=== PATIENT | male | born 1975 | race Two or more races ===

== ENCOUNTER 2021-04-23 13:55 | Inpatient (IN) | payer SELFPAY ==
[~2021-04-23] VITALS: Ht 167.6 cm; Wt 93.1 kg
[2021-04-23] MEDS ORDERED: ONDANSETRON HCL 4 MG/2 ML VIAL IV ONE ×2 (14:45→17:00)
[2021-04-23] MEDS ORDERED: SODIUM CHLORIDE 0.9% 500 ML IV ONE (14:45)
[2021-04-23] MEDS ORDERED: HYDROmorphone HCL 2 MG/ML VL IV ONE ×3 (14:45→19:00)
[2021-04-23 20:54] LABS: Basophils # (auto) 0.3 10 ^3/uL (0-0.2); Basophils % (auto) 2.2 % (0.0-2.0); Eosinophils # (auto) 0.1 10 ^3/uL (0-0.8); Eosinophils % (auto) 0.5 % (0.0-7.0); Hematocrit 45.1 % (41.0-53.0); Hemoglobin 15.3 g/dL (13.5-17.5); Lymphocytes # (auto) 2.6 10 ^3/uL (0.4-5.4); Lymphocytes % (auto) 20.5 % (10.0-50.0); Mean Corpuscular Hemoglobin 29.2 pg (28.0-32.0); Mean Corpuscular Hgb Conc. 33.9 g/dL (32.0-36.0); Mean Corpuscular Volume 86.3 fL (80.0-100.0); Monocytes # (auto) 0.9 10 ^3/uL (0-1.3); Monocytes % (auto) 7.1 % (0.0-12.0); Neutrophils # (auto) 8.8 10 ^3/uL (1.6-8.6); Neutrophils % (auto) 69.7 % (37.0-80.0); Red Blood Cells 5.23 10^6/uL (4.5-5.90); Red Cell Distribution Width 12.9 % (11.8-14.3); White Blood Cell 12.6 10^3/uL (4.4-10.8)
[2021-04-23] MEDS ORDERED: ONDANSETRON HCL 4 MG/2 ML VIAL IV PRN (21:00)
[2021-04-23 21:10] LABS: Albumin 3.7 g/dL (3.4-5.0); Calcium 8.7 mg/dL (8.5-10.1); Potassium 4.1 mmol/L (3.5-5.1)
[2021-04-23 21:12] LABS: BUN/Creatinine Ratio 13.9
[2021-04-23 21:14] LABS: Bilirubin, Total 0.5 mg/dL (0.2-1.0); Total Protein 7.5 g/dL (6.4-8.2)
[2021-04-23] MEDS: SODIUM CHLORIDE 0.9% 1,000 ML IV SCH (21:35)
[2021-04-23 22:53] LABS: INR 1.05 (0.9-1.15); Partial Thromboplastin Time 25.6 sec (23.6-33.0)
[2021-04-23 23:00] VITALS: BP 110/71
[2021-04-23 23:28] VITALS: BP 110/71
[2021-04-24] MEDS: MORPHINE SULFATE 4 MG/ML SYR/VIAL IV PRN ×2 (00:59→04:26)
[2021-04-24 05:10] LABS: Basophils # (auto) 0 10 ^3/uL (0-0.2); Basophils % (auto) 0.5 % (0.0-2.0); Eosinophils # (auto) 0.1 10 ^3/uL (0-0.8); Eosinophils % (auto) 0.9 % (0.0-7.0); Hematocrit 42.6 % (41.0-53.0); Hemoglobin 14.3 g/dL (13.5-17.5); Lymphocytes # (auto) 2.7 10 ^3/uL (0.4-5.4); Lymphocytes % (auto) 29.5 % (10.0-50.0); Mean Corpuscular Hemoglobin 29.2 pg (28.0-32.0); Mean Corpuscular Hgb Conc. 33.7 g/dL (32.0-36.0); Mean Corpuscular Volume 86.6 fL (80.0-100.0); Monocytes # (auto) 0.8 10 ^3/uL (0-1.3); Monocytes % (auto) 9.2 % (0.0-12.0); Neutrophils # (auto) 5.5 10 ^3/uL (1.6-8.6); Neutrophils % (auto) 59.9 % (37.0-80.0); Nucleated Red Blood Cells % 0.1 %; Red Blood Cells 4.92 10^6/uL (4.5-5.90); White Blood Cell 9.1 10^3/uL (4.4-10.8)
[2021-04-24 05:30] VITALS: BP 109/65
[2021-04-24 05:35] LABS: BUN/Creatinine Ratio 14.7; Calcium 8.8 mg/dL (8.5-10.1); Potassium 4.1 mmol/L (3.5-5.1)
[2021-04-24] MEDS: SODIUM CHLORIDE 0.9% 1,000 ML IV SCH (08:46)
[2021-04-24] MEDS: MORPHINE SULFATE INJECTION 2 MG/ML SYRG IV PRN ×2 (08:53→12:47)
[2021-04-24 09:00] VITALS: BP 132/85
[2021-04-24] MEDS ORDERED: PANTOPRAZOLE 40 MG/10 ML VIAL INJ IV SCH (10:00)
[2021-04-24] MEDS ORDERED: HYDR-4798 PO (11:30)
[2021-04-24 13:00] VITALS: BP 114/74
[2021-04-24 13:25] VITALS: BP 128/75
== END 2021-04-24 15:30 | disposition home or self-care (01) | DRG 562 ==
LOC: ER 13:55 → EDBD 13:55 → OVERFLOW 20:59 → WEST WING 22:52
PROVIDERS: ADMIT Nurse Practitioner; ATTEND Family Medicine
PROC: 2W3LX1Z Immobilization of Right Lower Extremity using Splint (ICD-10-PCS; principal; 2021-04-24)
DX: S82.201A Unspecified fracture of shaft of right tibia, initial encounter for closed fracture (principal); U07.1 COVID-19; S82.401A Unspecified fracture of shaft of right fibula, initial encounter for closed fracture; E66.9 Obesity, unspecified; Z53.8 Procedure and treatment not carried out for other reasons; W18.39XA Other fall on same level, initial encounter; Y93.89 Activity, other specified; Z68.33 Body mass index [BMI] 33.0-33.9, adult; Y92.89 Other specified places as the place of occurrence of the external cause; Y99.8 Other external cause status
CPT/HCPCS: 36415; 70450; 71045; 72125; 73590; 80048; 80053; 85025; 85610; 85730; 86850; 86900; 86901; 87426; 93971; 96361; 96374; 96375; C9113; G0378; J2405